=== PATIENT | female | born 1970 | race Caucasian/White ===

== ENCOUNTER 2016-06-05 20:19 | Emergency (ER) | payer BC ==
--- NOTE | 2016-06-05 21:00 | UC ---
Throat Pain/Nasal Pablito HPI - HPI Summary HPI Summary: 46 year old female with 2 months of stuffy nose, sinus pain and pressure that has become worse over the last several days. Sinus headaches and now having some right ear pressure. Denies fever or chills. Denies cough or difficulty breathing Heavy everyday smoker - History of Current Complaint Stated Complaint: SINUS PAIN Time Seen by Provider: 06/05/16 20:33 Hx Obtained From: Patient Hx Last Menstrual Period: 2010 ?: No Onset/Duration: Gradual Onset, Lasting Weeks - 8, Still Present Severity: Moderate Cough: None Associated Signs & Symptoms: Positive: Sinus Discomfort, Nasal Discharge - green. Negative: Dysphagia, FB Sensation, Drooling, Wheezing, Hoarseness, Fever , Vomiting Related History: Seasonal Allergies, Smoking - Epiglottits Risk Factors Epiglottis Risk Factors: Negative - Allergies/Home Medications Allergies/Adverse Reactions: Allergies Allergy/AdvReac Type Severity Reaction Status Date / Time No Known Allergies Allergy Verified 02/03/16 21:31 PMH/Surg Hx/FS Hx/Imm Hx Previously Healthy: Yes Endocrine History Of: Denies: Diabetes, Thyroid Disease Cardiovascular History Of: Denies: Cardiac Disorders, Hypertension Respiratory History Of: Denies: Asthma Neurological History Of: Reports: Migraine - OPHTHALMIC - Surgical History Surgical History: Yes Surgery Procedure, Year, and Place: hysterectomy. cyst removal. - Family History Known Family History: Positive: Cardiac Disease, Hypertension, Other - CVA, ANUERYSM, VALVULAR DZ - Social History Occupation: Employed Full-time Lives: With Family Alcohol Use: None Substance Use Type: None Smoking Status (MU): Heavy Every Day Tobacco Smoker Type: Cigarettes Amount Used/How Often: 1/2 PPD When Did the Patient Quit Smoking/Using Tobacco: 1 month ago, is using a vap Household Exposure Type: Cigarettes Cessation Counseling: Patient Advised to Stop - she is not interested in quiting at this time - Immunization History Most Recent Influenza Vaccination: no Review of Systems Constitutional: Negative Skin: Negative Eyes: Negative ENT: Nasal Discharge Respiratory: Negative Cardiovascular: Negative Gastrointestinal: Negative Genitourinary: Negative Motor: Negative Neurovascular: Negative Musculoskeletal: Negative Neurological: Headache - negative Psychological: Negative All Other Systems Reviewed And Are Negative: Yes Physical Exam Triage Information Reviewed: Yes Appearance: No Pain Distress, Well-Nourished, Ill-Appearing - mildly Vital Signs Reviewed: Yes Eyes: Positive: Conjunctiva Clear. Negative: Discharge ENT: Positive: Pharynx normal, Nasal congestion, TMs normal. Negative: Nasal drainage Neck: Positive: Supple, Nontender Respiratory: Positive: Lungs clear, Normal breath sounds Cardiovascular: Positive: RRR, No Murmur Musculoskeletal: Positive: Strength Intact, ROM Intact Neurological: Positive: Alert, Muscle Tone Normal Psychological: Positive: Age Appropriate Behavior - pleasant and cooperative Skin: Negative: rashes, breakdown Throat Pain/Nasal Course/Dx - Differential Dx/Diagnosis Differential Diagnosis/HQI/PQRI: Sinusitis, URI Provider Diagnoses: Sinusitis Discharge - Discharge Plan Condition: Stable Disposition: HOME Prescriptions: Amoxicillin/Clavulanate TAB* [Augmentin TAB 875*] 875 mg PO BID #20 tab Fluticasone NASAL SPRAY 50MCG* [Flonase NASAL SPRAY 50MCG*] 1 spray BOTH NARES DAILY #1 btl
[2016-06-05] MEDS ORDERED: Amoxicillin/Clavulanate TAB* 875 MG PO ONE (21:03)
[2016-06-05 21:17] VITALS: BP 123/90
== END 2016-06-05 21:22 | disposition home or self-care (01) ==
LOC: UCCORT 20:19
DX: J32.9 Chronic sinusitis, unspecified (principal); F17.210 Nicotine dependence, cigarettes, uncomplicated
CPT/HCPCS: 99212; A9270-GY; G0463

== ENCOUNTER 2016-07-13 17:36 | Emergency (ER) | payer BC, OTHER ==
[2016-07-13 18:11] VITALS: BP 121/81
--- NOTE | 2016-07-13 19:00 | UC ---
Back Pain HPI - HPI Summary HPI Summary: "I'm not sure, you probably won't be able to do a whole lot for me..." Chronic posterior neck to mid back pain due to herniated discs. Patient stated her oxycodone and tizanidine are not helping this and would also like a few days off of work. 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 PCP Steve ([place], [place]). Neurosurgeon Nazia. Has had flare up of neck pain starting today. Can not get comfortable . [ End ] - History of Current Complaint Chief Complaint: UCBackPain Stated Complaint: NECK AND BACK PAIN Time Seen by Provider: 07/13/16 18:30 Hx Obtained From: Patient Hx Last Menstrual Period: 2010 ?: No Onset/Duration: Gradual Onset Timing: Constant Back Pain: Is Diffuse Aggravating: Movement Associated Signs And Symptoms: Positive: Negative Related History: Similar Episode Dx As - Risk Factors AAA Risk Factors: Smoking Cauda Equina Risk Factors: Negative - Allergies/Home Medications Allergies/Adverse Reactions: Allergies Allergy/AdvReac Type Severity Reaction Status Date / Time No Known Allergies Allergy Verified 07/13/16 18:06 PMH/Surg Hx/FS Hx/Imm Hx Previously Healthy: Yes Endocrine History Of: Denies: Diabetes, Thyroid Disease Cardiovascular History Of: Denies: Cardiac Disorders, Hypertension Respiratory History Of: Denies: Asthma Neurological History Of: Reports: Migraine - OPHTHALMIC Psychological History Of: Denies: Anxiety - Surgical History Surgical History: Yes Surgery Procedure, Year, and Place: hysterectomy. cyst removal. - Family History Known Family History: Positive: Cardiac Disease, Hypertension, Other - CVA, ANUERYSM, VALVULAR DZ - Social History Occupation: Employed Full-time - Nurse Lives: With Family Alcohol Use: None Substance Use Type: None Smoking Status (MU): Heavy Every Day Tobacco Smoker Type: Cigarettes Amount Used/How Often: 1/2 PPD Length of Time of Smoking/Using Tobacco: 28 Years Have You Smoked in the Last Year: Yes When Did the Patient Quit Smoking/Using Tobacco: 1 month ago, is using a vap Household Exposure Type: Cigarettes Cessation Counseling: Patient Advised to Stop - Immunization History Most Recent Influenza Vaccination: March 2016 Review of Systems Constitutional: Negative Skin: Negative Eyes: Negative ENT: Negative Respiratory: Negative Cardiovascular: Negative Gastrointestinal: Negative Genitourinary: Negative Motor: Negative Neurovascular: Negative Musculoskeletal: Arthralgia - neck pain, Decreased ROM Neurological: Negative Psychological: Negative All Other Systems Reviewed And Are Negative: Yes Physical Exam Triage Information Reviewed: Yes Appearance: Well-Appearing, No Pain Distress, Well-Nourished Vital Signs: Initial Vital Signs Temp 98.1 F 07/13/16 18:04 Pulse 80 07/13/16 18:04 Resp 16 07/13/16 18:04 BP 121/81 07/13/16 18:04 Pulse Ox 100 07/13/16 18:04 Vital Signs Reviewed: Yes Eye Exam: Normal ENT Exam: Normal Respiratory Exam: Normal Cardiovascular Exam: Normal Musculoskeletal Exam: Normal Musculoskeletal: Positive: Other: - bilateral paraspinal tenderness diffusely in cervical and thoracic spine and pacing in the room in discomfort Neurological Exam: Normal Neurological: Positive: Alert, Muscle Tone Normal Psychological Exam: Normal Skin Exam: Normal Back Pain Course/Dx - Course Course Of Treatment: Flare up of chronic neck pain - Differential Dx/Diagnosis Differential Diagnosis/HQI/PQRI: Compressive Cord Syndrome, Herniated Disc, Strain, Sprain Provider Diagnoses: Flare up of chronic neck pain Discharge - Discharge Plan Condition: Good Disposition: HOME Forms: *Work Release Referrals: Taisha Wilson MD [Primary Care Provider] - 3 Days Additional Instructions: As we discussed consider Pain Management in the future to discuss alternative treatments for your pain.
== END 2016-07-13 19:31 | disposition home or self-care (01) ==
LOC: UCCORT 17:36
DX: M54.2 Cervicalgia (principal); F17.210 Nicotine dependence, cigarettes, uncomplicated
CPT/HCPCS: 99211; G0463